=== PATIENT | male | born 1990 | race Hispanic/Latino ===

== ENCOUNTER 2022-06-13 15:46 | Emergency (ER) | payer SELFPAY ==
--- NOTE | ~2022-06-13 | CT_ITS ---
EXAMINATION: CT abdomen pelvis w con DATE: 06/14/2022 01:28 INDICATION: RUQ pain, n/v TECHNIQUE: Computed tomography (CT) of the abdomen and pelvis was performed with 100 mL Omnipaque-350 intravenous contrast. Automated exposure control and iterative reconstruction technique were employe d. The dose-length product was 335.15 mGy-cm. COMPARISON: None. FINDINGS: Lower thorax: Dependent atelectasis Liver: Normal. Biliary/Gallbladder: Gallbladder is normal. No bile duct dilation. Pancreas: No mass or duct dilation. Spleen: Normal. Adrenals:No mass. Kidneys: No mass, stone, or hydronephrosis. GI tract: Mild distal esophageal and gastric wall edema No small or large bowel dilation. Normal appe ndix. Minimal scattered diverticulosis without diverticulitis. Mesentery/Peritoneum: No ascites, mass, or free air. Retroperitoneum: No mass. Pelvis: Pelvic organs are within normal limits. Soft Tissues: Soft tissues and body wall unremarkable. Bones: No acute osseous finding. IMPRESSION: No acute abdominal pelvic process detected. Reviewed, dictated and finalized at location [facility]
[2022-06-13 16:40] VITALS: BP 132/75; PULSE 72; RESP 15; TEMP 36.4; O2SAT 100
[2022-06-13 16:50] LABS: Basophils Percent Auto 0.4 % (0.2-1.2); Eosinophils Absolute Auto 0.2 K/mm3 (0-0.3); Eosinophils Percent Auto 2.4 % (0-4.4); Hematocrit 42.4 % (42.0-52.0); Hemoglobin 14.9 g/dL (14.0-18.0); Immature Granulocyte Absolute 0.01 K/mm3 (0.00-0.031); Immature Granulocyte Percent A 0.1 % (0-0.5); Lymphocytes Absolute Auto 1.61 K/mm3 (0.9-3.2); Lymphocytes Percent Auto 22.3 % (18.3-44.2); Mean Corpuscular HGB Conc 35.1 g/dl (32-36); Mean Corpuscular Hemoglobin 32.5 pg (26-34); Mean Corpuscular Volume 92.6 fl (80-100); Mean Platelet Volume 9.6 fl (7.4-10.4); Monocytes Absolute Auto 0.5 K/mm3 (0.1-0.6); Monocytes Percent Auto 7.1 % (2.6-8.5); Neutrophils Absolute Auto 4.9 K/mm3 (1.3-6.7); Neutrophils Percent Auto 67.7 % (45.5-73.1); Platelet Count Result 371 k/mm3 (150-375); Red Blood Count 4.58 M/mm3 (4.6-6.20); Red Cell Distribution Width 11.9 % (11.5-14.5); White Blood Count 7.2 K/mm3 (4.5-10.0)
[2022-06-13 17:00] LABS: Alanine Aminotransferase 48 U/L (6-50); Albumin Level 4.9 g/dL (3.5-5.1); Alkaline Phosphatase 67 U/L (38-126); Anion Gap 12 mmol/L (8-16); Aspartate Amino Transferase 38 U/L (17-59); Bilirubin,Total 0.6 mg/dL (0.2-1.3); Blood Urea Nitrogen 16 mg/dL (9-20); Calcium 9.1 mg/dL (8.4-10.2); Carbon Dioxide 24 mmol/L (22-30); Chloride 105 mmol/L (98-107); Estimated CRCL calculation 71 ml/min; Estimated Glomerular Filt Rate > 60; Glucose 122 mg/dL (65-110); Lipase 52 U/L (23-300); Potassium 3.9 mmol/L (3.4-5.0); Sodium 141 mmol/L (137-145)
[2022-06-13 17:48] LABS: Add Urine Microscopic? YES; Appearance Urine Clear (Clear); Bilirubin Urine Negative (Negative); Blood Urine Negative (Negative); Color Urine Yellow (Yellow); Glucose Urine UA Negative (Negative); Ketones Urine Trace mg/dL (Negative); Leukocyte Esterase Ur Negative LEU/UL (Negative); Nitrate Urine Negative (Negative); Protein Urine Negative (Negative); Specific Grav Ur >= 1.030 (1.001-1.035); Urobilinogen Urine 0.2 mg/dL (<2.0); pH Urine 5.5 (5.0-9.0)
[2022-06-13 18:08] LABS: Mucus Urine Rare /lpf; RBC Urine 0-2 /hpf (0-2); WBC Urine 0-3 /hpf
[2022-06-13 21:12] VITALS: BP 122/70; PULSE 67; RESP 14; O2SAT 100
--- NOTE | 2022-06-14 00:13 | ED.ABDPAIN ---
HPI - Abdominal Pain General Chief Complaint: Abdominal Pain Stated Complaint: RUQ pain. Time Seen by Provider: 06/14/22 00:05 History of Present Illness HPI narrative: 32-year-old male here for evaluation of right upper quadrant abdominal pain for the past day. Patient states the pain comes on after meals. Also associated with nausea and vomiting. He has been eating greasy and fatty foods over the past several days. He was diagnosed with gallbladder issues while he was in [place] but still has his gallbladder. He denies any fevers or chills, diarrhea constipation, dysuria, urgency or frequency. Related Data Home Medications Medication Instructions Recorded Confirmed No Home Medications 06/14/22 06/14/22 Allergies Allergy/AdvReac Type Severity Reaction Status Date / Time No Known Allergies Allergy Verified 06/14/22 00:35 Review of Systems Review of Systems: Gen: Denies fevers or chills Eyes: Denies eye pain or visual change ENT: Denies congestion Respiratory: Denies shortness of breath or cough CV: Denies chest pain or palpitations GI: Reports abdominal pain, nausea and vomiting. : denies burning, urgency, frequency or hematuria Musculoskeletal: Denies back pain or muscle pain Neuro: Denies numbness, tingling, weakness or focal weakness Skin: Denies rash Except as documented, all other systems reviewed and negative Exam Narrative: APPEARANCE: Well appearing, no pain in distress, well-nourished. Head: Normocephalic and atraumatic. EYES: PERRLA/EOMI, conjunctivae clear NOSE: No nasal drainage EARS: External ear normal in appearance THROAT: Oropharynx is clear. Mucous membranes are moist. NECK: Supple. No adenopathy, no masses. RESPIRATORY: Airway patent, respirations nonlabored. Clear to auscultation bilaterally, no rales, rhonchi, wheezing. CARDIOVASCULAR: Regular rate and rhythm without murmurs, rubs, or gallops. ABDOMINAL: Tender to palpation in right upper quadrant with no rebound tenderness or guarding. Normoactive bowel sounds. Soft, nontender, nondistended. MUSCULOSKELETAL: Extremities are warm and well-perfused. Moves all extremities well. No edema. NEURO: Normal speech. No focal neurologic deficits. SKIN: Skin is warm and dry. No rashes. PSYCHIATRIC: Normal affect/mood.. Course Vital Signs Vital signs: Vital Signs Temperature 97.6 F 06/13/22 16:40 Pulse Rate 72 06/13/22 16:40 Respiratory Rate 15 06/13/22 16:40 Blood Pressure 132/75 06/13/22 16:40 Pulse Oximetry 100 06/13/22 16:40 Oxygen Delivery Room Air 06/13/22 16:40 Temperature 98.0 F 06/14/22 00:32 Pulse Rate 62 06/14/22 01:46 Respiratory Rate 18 06/14/22 01:46 Blood Pressure 105/54 L 06/14/22 01:55 Pulse Oximetry 98 06/14/22 01:46 Oxygen Delivery Room Air 06/14/22 00:32 MDM - Abdominal Pain MDM Narrative Medical decision making narrative: Patient is a 32-year-old male here for evaluation of right upper quadrant abdominal pain nausea and vomiting over the past day. Patient is nontoxic-appearing and has normal vital signs. He is tender to palpation in the right upper quadrant. He has no leukocytosis and normal LFTs. CT scan without acute abnormalities. Patient resolved, tolerating p.o. after Zofran. Patient is stable for discharge; will refer him to PCP as he may need ultrasound or further studies. Patient is aware of need for follow-up and he was given reasons to return to the ED. Lab Data 06/13/22 16:44 06/13/22 16:44 Labs: Lab Results 06/13/22 06/13/22 06/13/22 Range/Units 16:44 16:44 17:39 WBC 7.2 (4.5-10.0) K/mm3 RBC 4.58 L (4.6-6.20) M/mm3 Hgb 14.9 (14.0-18.0) g/dL Hct 42.4 (42.0-52.0) % MCV 92.6 (80-100) fl MCH 32.5 (26-34) pg MCHC 35.1 (32-36) g/dl RDW 11.9 (11.5-14.5) % Plt Count 371 (150-375) k/mm3 MPV 9.6 (7.4-10.4) fl Immature Gran % (Auto) 0.1 (0-0.5) % Neut % (Auto) 67.7
[2022-06-14 00:32] VITALS: BP 118/75; PULSE 72; RESP 17; TEMP 36.7; O2SAT 100
[2022-06-14] MEDS: SODIUM CHLORIDE 0.9% IV 1,000 ML 999 ML IV CONT (00:39)
[2022-06-14] MEDS: KETOROLAC 15 MG/ML VIAL (*BKC) IV PUSH (00:40)
[2022-06-14 00:55] VITALS: O2SAT 97
[2022-06-14 01:04] VITALS: O2SAT 97
[2022-06-14 01:46] VITALS: PULSE 62; RESP 18; O2SAT 98
[2022-06-14 01:55] VITALS: BP 105/54
[2022-06-14 02:10] VITALS: BP 104/62; PULSE 82; RESP 18; O2SAT 99
== END 2022-06-14 02:12 | disposition home or self-care (01) ==
PROVIDERS: Emergency Medicine; Emergency Provider Physician Assistant
DX: R10.11 Right upper quadrant pain (principal)
CPT/HCPCS: 36415; 74177; 80053; 81001; 83690; 85025; 96361; 96374; 99284; J1885; J7030; Q9967